=== PATIENT | female | born 1955 | race African-American/Black ===

== ENCOUNTER 2019-03-22 09:22 | Outpatient (CLI) | END 2019-03-22 09:23 | disposition home or self-care (01) | LOC: LAB 09:22 | PROVIDERS: ATTEND Nurse Practitioner Acute Care | DX: Z00.00 Encounter for general adult medical examination without abnormal findings (principal); I10 Essential (primary) hypertension; M06.09 Rheumatoid arthritis without rheumatoid factor, multiple sites | CPT/HCPCS: 36415; 80053; 80061; 81001; 82306; 83036; 84443; 85008; 85025; 86803; 87389 ==